=== PATIENT | female | born 1965 | race Caucasian/White ===

== ENCOUNTER 2020-02-29 12:02 | Emergency (ER) | payer OTHER ==
[~2020-02-29] VITALS: Ht 162.6 cm; Wt 59.1 kg
[2020-02-29 12:03] VITALS: BP 121/91
== END 2020-02-29 12:49 | disposition home or self-care (01) ==
LOC: ER 12:03
DX: Z20.828 Contact with and (suspected) exposure to other viral communicable diseases (principal)
CPT/HCPCS: 36415; 87635; 99283